=== PATIENT | female | born 1960 | race Caucasian/White ===

== ENCOUNTER 2021-03-03 10:38 | Outpatient (REF) | payer OTHER, SELFPAY ==
[2021-03-04 14:06] LABS: H Pylori Breath Test NOT DETECTED (NOT DETECTED)
== END 2021-03-03 10:39 | disposition home or self-care (01) ==
LOC: HO.LNP 10:38
PROVIDERS: PCP Internal Medicine; Visit Provider Surgery
DX: Z01.818 Encounter for other preprocedural examination (principal); E66.01 Morbid (severe) obesity due to excess calories
CPT/HCPCS: 83013